=== PATIENT | male | born 1960 | race Caucasian/White ===

== ENCOUNTER 2018-01-06 10:36 | Emergency (ER) | payer MEDICARE, BC ==
[2018-01-06] MEDS: HYDROCODONE/APAP (5/325) TAB PO (11:15)
[2018-01-06] MEDS: DIPHTH/TET/ACEL PERTUSS (ADULT) 0.5 ML VIAL IM* (11:20)
== END 2018-01-06 12:41 | disposition home or self-care (01) ==
LOC: FTE 10:36
DX: S61.213A Laceration without foreign body of left middle finger without damage to nail, initial encounter (principal); S59.912A Unspecified injury of left forearm, initial encounter; F17.210 Nicotine dependence, cigarettes, uncomplicated; R07.9 Chest pain, unspecified; W18.39XA Other fall on same level, initial encounter; Y92.89 Other specified places as the place of occurrence of the external cause; Z23 Encounter for immunization
CPT/HCPCS: 71045; 73030; 73060; 73140; 90471; 90715; 99284-25

== ENCOUNTER 2018-04-23 17:46 | Emergency (ER) | payer MEDICARE, BC | END 2018-04-23 18:55 | disposition home or self-care (01) | LOC: E/R 17:46 | DX: L03.031 Cellulitis of right toe (principal) | CPT/HCPCS: 99284 ==